=== PATIENT | male | born 1985 | race African-American/Black ===

== ENCOUNTER 2017-02-28 16:48 | Emergency (ER) | payer SELFPAY ==
[2017-03-04 07:30] LABS: CHLAMYDIA TRACH Not Detected (Not Detected); N GONOR Not Detected (Not Detected)
[2017-03-06] MEDS ORDERED: ZOVIRAX400 MG PO (15:03)
== END 2017-02-28 19:39 | disposition home or self-care (01) ==
LOC: SED 16:48
PROVIDERS: Nurse Practitioner Family
DX: Z20.2 Contact with and (suspected) exposure to infections with a predominantly sexual mode of transmission (principal); F17.210 Nicotine dependence, cigarettes, uncomplicated
CPT/HCPCS: 87253; 87491; 87591; 99283